=== PATIENT | female | born 1995 ===

== ENCOUNTER 2017-02-03 15:29 | Emergency (ER) | payer MEDICAID, OTHER ==
[2017-02-03 15:53] VITALS: BMI 36.8
--- NOTE | 2017-02-03 16:36 | OBDCSUM ---
Datetime: 02/03/2017 16:31 Discharged to, Provider: Home Follow up at, Provider: [facility] Disch Instr Activity: Normal activity Disch Instr Diet: Regular Discharge Instructions, Provider: Routine instructions given Discharge Time: 02/03/2017 16:31 Follow up in weeks, Provider: 02/07/2017 Disch Referrals: None Contraception discussed, Prov: No Discharge Comment, Provider: return if inceased bleeding, ctxns q 5 mins, decreased FM Discharge Diagnosis Prov Other: false labor
--- NOTE | 2017-02-03 16:37 | OBHP ---
Datetime: 02/03/2017 16:25 IP Adm Impression: Term, intrauterine IP Admit Plan: Observation/Evaluation; Discharge home Admit Comment, IP Provider: Patient is a @ 39.4 wks with contraction pain. Patient denies va ginal bleeding, leaking, +FM, contractions q 3 mins on/off. Patient went to [facility] yesterday and was sent home after being checked and found to be 1cm. Patient Was examined and found to be 1cm/ 50/-3 here today [id number] mod gail, +accels, no decels TOCO=ctxning q 10 mins A/P 1. Patient does not appear to be in labor. Patient unchanged cervical exam since yesterday. 2. NBD=[id number] cat-I tracing. Will discharge patient home, labor precautions provided Pelvic Type - PN: Adequate Extremities - PN: Normal Abdomen - PN: Normal Back - PN: Normal Breast - PN: Normal Lungs - PN: Normal Heart - PN: Normal Thyroid - PN: Normal Neurologic - PN: Normal HEENT - PN: Normal General - PN: Normal FHR - Baseline A Provider: 140 Contraction Comments Provider: q 9-10 Vital Signs Provider: Reviewed NICHD Variability Prov Fetus A: Moderate 6-25bpm NICHD Accel Fetus A IP Provider: [id number] FHR Category Provider Fetus A: Category I NICHD Decel Fetus A IP Provider: None Dilatation, Provider: 1 Effacement, Provider: 50 Station, Provider: -3 Genitourinary Exam: Normal DTRs - PN: Normal
== END 2017-02-03 16:34 | disposition home or self-care (01) ==
LOC: H.EROB2 15:29
DX: O60.03 Preterm labor without delivery, third trimester (principal); Z3A.39 39 weeks gestation of pregnancy